=== PATIENT | male | born 1965 | race Caucasian/White ===

== ENCOUNTER → 2018-10-24 | Day surgery (SDC) | payer BC ==
[2018-10-22 13:45] VITALS: BMI 37.3
[~2018-10-24] MED LIST: LACTATED RINGERS 1,000 ML IV ONE; LACTATED RINGERS 1,000 ML IV SCH; LIDOCAINE 1% 20 ML VIAL (10MG/ML) FOR IV START INTRADERMA PRN; LIDOCAINE 1% INJ 10MG/ML (20 ML MDV) ONE; MIDAZOLAM 2 MG/2 ML VIAL IV PRN; MIDAZOLAM 2 MG/2 ML VIAL ONE; PROPOFOL 10 MG/ML 20 ML VIAL IV ONE; SODIUM CHLORIDE 0.9% 500 ML 500 ML IV ONE
[2018-10-24 07:45] LABS: Glucose,Whole Blood 141 mg/dL (75-99)
--- NOTE | 2018-10-24 07:49 | P.GSHP ---
History of Present Illness H&P Date: 10/24/18 Chief Complaint: Screening colonoscopy This a 53-year-old male presents today for screening colonoscopy. Patient denies a significant GI complaints. Past Medical History Past Medical History: Cancer, Diabetes Mellitus, GERD/Reflux Additional Past Medical History / Comment(s): BORDERLINE DIABETES IMPROVED SINCE LOST SOME WEIGHT. HISTORY OF KIDNEY STONES-PASSED ON OWN.Hodgkin's lymphomas-last chemo 2009 History of Any Multi-Drug Resistant Organisms: None Reported Additional Past Surgical History / Comment(s): LASIK ,laser procedure for kidney stone Past Anesthesia/Blood Transfusion Reactions: Motion Sickness, Postoperative Nausea & Vomiting (PONV) Smoking Status: Never smoker - Past Family History Mother Family Medical History: Cancer Additional Family Medical History / Comment(s): bone Father Family Medical History: Cancer Additional Family Medical History / Comment(s): prostate Medications and Allergies Home Medications Medication Instructions Recorded Confirmed Type Carvedilol [Coreg] 6.25 mg PO BID 10/22/18 10/24/18 History Allergies Allergy/AdvReac Type Severity Reaction Status Date / Time steroids AdvReac Nausea & Uncoded 10/22/18 13:52 Vomiting Surgical - Exam Vital Signs Pulse Resp BP Pulse Ox 96 12 161/94 97 10/24/18 07:23 10/24/18 07:23 10/24/18 07:23 10/24/18 07:23 - General well developed, no distress - Eyes PERRL - ENT normal pinna - Neck no masses - Respiratory normal expansion - Cardiovascular Rhythm: regular - Abdomen Abdomen: soft, non tender Results - Labs Abnormal Lab Results - Last 24 Hours (Table) 10/24/18 Range/Units 07:28 POC Glucose (mg/dL) 141 H (75-99) mg/dL Assessment and Plan Assessment: We'll perform screening colonoscopy.
--- NOTE | 2018-10-24 09:22 | P.OP ---
Date of Procedure: 10/24/18 Preoperative Diagnosis: Screening colonoscopy Postoperative Diagnosis: Cecal polyp Procedure(s) Performed: Colonoscopy Anesthesia: MAC Surgeon: Kristopher Little Pathology: other (Cecal polyp) Condition: stable Disposition: PACU Description of Procedure: The patient's placed on the endoscopy table in the lateral position. He received IV sedation. Digital rectal exam was performed which revealed no abnormalities. Flexible colonoscope was then placed patient entire colon. The ileocecal valve was visualized. In the cecum there was a polyp seen this removed with the snare. The scope was then withdrawn. Remainder the ascending colon, transverse colon, descending colon and sigmoid colon appeared normal. Scope was then brought back the rectum and this appeared normal. Scope was withdrawn for patient.
[2018-10-24 09:27] VITALS: RESP 16
[2018-10-24 09:50] LABS: Glucose,Whole Blood 133 mg/dL (75-99)
[2018-10-24 09:53] VITALS: BP 147/82; PULSE 79
== END | disposition home or self-care (01) ==
LOC: ORWHC2ENDO 06:47
PROVIDERS: ATTEND Surgery
DX: Z12.11 Encounter for screening for malignant neoplasm of colon (principal); D12.0 Benign neoplasm of cecum; E11.9 Type 2 diabetes mellitus without complications; K21.9 Gastro-esophageal reflux disease without esophagitis; Z79.899 Other long term (current) drug therapy; Z88.8 Allergy status to other drugs, medicaments and biological substances; Z87.442 Personal history of urinary calculi; Z85.71 Personal history of Hodgkin lymphoma
CPT/HCPCS: 88305; 45385; J2250; J2001; J2704

== ENCOUNTER 2019-06-04 01:30 | Emergency (ER) | payer BC ==
[2019-06-04 01:45] VITALS: RESP 16; TEMP 98.5
[2019-06-04] MEDS ORDERED: KETOROLAC 30 MG/ML 1 ML VIAL IVP STA (01:50)
[2019-06-04] MEDS ORDERED: SODIUM CHLORIDE 0.9% 1,000 ML IV STA (01:50)
[2019-06-04] MEDS ORDERED: ONDANSETRON 4 MG/2 ML VIAL IVP STA (02:37)
[2019-06-04] MEDS ORDERED: MORPHINE SULFATE 4 MG/ML SYRINGE IVP STA (02:37)
--- NOTE | 2019-06-04 02:38 | ED ---
Male Urogenital HPI - General Chief complaint: Urogenital Stated complaint: Poss kidney stones Time Seen by Provider: 06/04/19 01:49 Source: patient Mode of arrival: ambulatory - History of Present Illness Initial comments: Armando is a 54-year-old woman with a history of kidney stones, patient reports that he had a very large stone approximately 3 years ago that required lithotri psy, he reports that he thought he passed a stone approximately a couple months ago. Patient reports that he woke on Saturday morning at 4 AM with stabbing left-sided flank pain that radiated to his groin. Pain was identical to previous episodes of kidney stone. Pain was associated with nausea but no vomiting. Patient reports he's had no appetite throughout the day. He is taken home medications including Motrin, Tylenol and Vicodin with no relief of the pain. This morning the pain became unbearable so he came to the ER for evaluation. Patient denies any fevers, chills, chest pain shortness of breath or change in bowel habits. - Related Data Home Medications Medication Instructions Recorded Confirmed Carvedilol [Coreg] 6.25 mg PO BID 10/22/18 10/24/18 Previous Rx's Medication Instructions Recorded HYDROcodone/APAP 5-325MG [[place] 1 tab PO Q6HR PRN 3 Days #8 tab 06/04/19 5-325] Ibuprofen [Motrin] 800 mg PO TID #30 tab 06/04/19 Ondansetron [Zofran ODT] 4 mg PO Q8HR #12 tab 06/04/19 Tamsulosin [Flomax] 0.4 mg PO DAILY #7 cap 06/04/19 Allergies Allergy/AdvReac Type Severity Reaction Status Date / Time steroids AdvReac Nausea & Uncoded 10/22/18 13:52 Vomiting Review of Systems ROS Statement: Those systems with pertinent positive or pertinent negative responses have been documented in the HPI. ROS Other: All systems not noted in ROS Statement are negative. Past Medical History Past Medical History: Cancer, Diabetes Mellitus, GERD/Reflux Additional Past Medical History / Comment(s): BORDERLINE DIABETES IMPROVED SINCE LOST SOME WEIGHT. HISTORY OF KIDNEY STONES-PASSED ON OWN.Hodgkin's lymphomas- last chemo 2009 History of Any Multi-Drug Resistant Organisms: None Reported Additional Past Surgical History / Comment(s): LASIK ,laser procedure for kidney stone Past Anesthesia/Blood Transfusion Reactions: Motion Sickness, Postoperative Nausea & Vomiting (PONV) Past Psychological History: No Psychological Hx Reported Smoking Status: Never smoker - Past Family History Mother Family Medical History: Cancer Additional Family Medical History / Comment(s): bone Father Family Medical History: Cancer Additional Family Medical History / Comment(s): prostate General Exam - General Exam Comments Initial Comments: Physical Exam GENERAL: Appears uncomfortable HENT: Normocephalic, Atraumatic. EYES: PERRL, EOMI PULMONARY: Unlabored respirations. No audible rales rhonchi or wheezing was noted. CARDIOVASCULAR: There is a regular rate and rhythm without any murmurs gallops or rubs. ABDOMEN: Soft and nontender with normal bowel sounds. Tenderness to percussion of left flank SKIN: Skin is clear with no lesions or rashes and otherwise unremarkable. : Deferred NEUROLOGIC: Patient is alert and oriented x3. Moving all extremities spontaneously MUSCULOSKELETAL: Normal extremities with adequate strength and full range of motion. No lower extremity swelling or edema. No calf tenderness. PSYCHIATRIC: Normal psychiatric evaluation Course Vital Signs 06/04/19 06/04/19 01:42 05:09 Temperature 98.5 F Pulse Rate 104 H 63 Respiratory 16 16 Rate Blood Pressure 133/70 141/98 O2 Sat by Pulse 98 98 Oximetry Medical Decision Making - Medical Decision Making The patient was seen and evaluated, history is obtained from the patient Labs and imaging were ordered Was ordered pain Patient's pain was not adequately controlled Toradol morphine and Zofran were ordered Prior to the morphine being given the patient reported complete resolution of his pain and stated that he wouldn't need the morphine. Labs were unremarkable, CT confirms a left ureteral stone 6 mm, mid ureter with some hydronephrosis and perinephric stranding UA with no signs of UTI Patient comfortable plan for discharge home. Patient will be prescribed Motrin, [place], Zofran and Flomax. Patient be referred to urology for follow-up. All questions pertaining care were answered return parameters were discussed the patient was discharged home in stable condition. - Lab Data Result diagrams: 06/04/19 01:54 06/04/19 01:54 Lab Results 06/04/19 06/04/19 06/04/19 Range/Units 01:54 01:54 02:13 WBC 12.0 H (3.8-10.6) k/uL RBC 5.09 (4.30-5.90) m/uL Hgb 14.6 (13.0-17.5) gm/dL Hct 44.9 (39.0-53.0) % MCV 88.3 (80.0-100.0) fL MCH 28.7 (25.0-35.0) pg MCHC 32.5 (31.0-37.0) g/dL RDW 15.2 (11.5-15.5) % Plt Count 276 (150-450) k/uL Neutrophils % 81 % Lymphocytes % 10 % Monocytes % 7 % Eosinophils % 1 % Basophils % 0 % Neutrophils # 9.7 H (1.3-7.7) k/uL Lymphocytes # 1.2 (1.0-4.8) k/uL Monocytes # 0.8 (0-1.0) k/uL Eosinophils # 0.1 (0-0.7) k/uL Basophils # 0.0 (0-0.2) k/uL Sodium 139 (137-145) mmol/L Potassium 4.2 (3.5-5.1) mmol/L Chloride 102 (98-107) mmol/L Carbon Dioxide 25 (22-30) mmol/L Anion Gap 12 mmol/L BUN 15 (9-20) mg/dL Creatinine 1.21 (0.66-1.25) mg/dL Est GFR (CKD-EPI)AfAm 78 (>60 ml/min/1.73 sqM) Est GFR (CKD-EPI)NonAf 68 (>60 ml/min/1.73 sqM) Glucose 191 H (74-99) mg/dL Calcium 9.4 (8.4-10.2) mg/dL Urine Color Light Red Urine Appearance Cloudy (Clear) Urine pH 5.5 (5.0-8.0) Ur Specific [place] 1.027 (1.001-1.035) Urine Protein 1+ H (Negative) Urine Glucose (UA) 3+ H (Negative) Urine Ketones Negative (Negative) Urine Blood Large H (Negative) Urine Nitrite Negative (Negative) Urine Bilirubin Negative (Negative) Urine Urobilinogen <2.0 (<2.0) mg/dL Ur Leukocyte Esterase Negative (Negative) Urine RBC >182 H (0-5) /hpf Urine WBC 8 H (0-5) /hpf Ur Squamous Epith Cells 1 (0-4) /hpf Urine Bacteria Moderate H (None) /hpf Urine Mucus Rare H (None) /hpf Disposition Clinical Impression: Ureteral stone with hydronephrosis Disposition: HOME SELF-CARE Condition: Stable Instructions (If sedation given, give patient instructions): Kidney Stones (ED) Prescriptions: Tamsulosin [Flomax] 0.4 mg PO DAILY #7 cap Ibuprofen [Motrin] 800 mg PO TID #30 tab HYDROcodone/APAP 5-325MG [[place] 5-325] 1 tab PO Q6HR PRN 3 Days #8 tab PRN Reason: Pain Ondansetron [Zofran ODT] 4 mg PO Q8HR #12 tab Is patient prescribed a controlled substance at d/c from ED?: Yes If prescribed controlled substance>3 days was MAPS reviewed?: Prescribed <3 Days Referrals: Mindi Miranda DO [Primary Care Provider] - 1-2 days Jerzy Tenorio MD [STAFF PHYSICIAN] - 1-2 days
[2019-06-04 02:47] LABS: Appearance,Urine Cloudy (Clear); Bacteria,Urine Moderate /hpf; Bilirubin,Urine Negative (Negative); Blood,Urine Large (Negative); Color,Urine Light Red; Glucose,Urine (UA) 3+ (Negative); Ketones,Urine Negative (Negative); Leukocyte Esterase,Urine Negative (Negative); Mucus,Urine Rare /hpf; Nitrite,Urine Negative (Negative); PH, Urine 5.5 (5.0-8.0); Protein,Urine 1+ (Negative); RBC,Urine >182 /hpf (0-5); Specific Gravity,Urine 1.027 (1.001-1.035); Squamous Epithelial Cell,Urine 1 /hpf (0-4); Urobilinogen,Urine <2.0 mg/dL (<2.0); WBC,Urine 8 /hpf (0-5)
--- NOTE | 2019-06-04 03:24 | XR ---
EXAM: XR Abdomen, 1 View CLINICAL HISTORY: Pain TECHNIQUE: Frontal supine view of the abdomen/pelvis. COMPARISON: 11/14/2015 FINDINGS: Gastrointestinal tract: Gas and stool are present in the nondilated colon. Overall paucity of small bowel gas with a few nondilated gas- filled loops in the central abdomen. No pneumatosis or pneumoperitoneum. Bones/joints: No acute fracture or malalignment. IMPRESSION: Nonspecific bowel gas pattern. No pneumatosis or pneumoperitoneum.
--- NOTE | 2019-06-04 03:34 | CT ---
EXAM: CT Abdomen and Pelvis Without Intravenous Contrast, Renal Stone Protocol CLINICAL HISTORY: Pain TECHNIQUE: Axial computed tomography images of the abdomen and pelvis without intravenous contrast using renal stone protocol. CTDI is 0.242, 0.242, 16, as mGy and DLP is 1038 mGy-cm. This CT exam was performed using one or more of the following dose reduction techniques: automated exposure control, adjustment of the mA and/or kV according to patient size, and/or use of iterative reconstruction technique. COMPARISON: No relevant prior studies available. FINDINGS: Lower thorax: Unremarkable as visualized. ABDOMEN: Liver: The liver is diffusely hypodense suggestive of steatosis. Gallbladder and bile ducts: Unremarkable. No calcified gallstones. Pancreas: Unremarkable. Spleen: Unremarkable. No splenomegaly. Adrenals: Unremarkable. No mass. Right kidney and ureter: A 2 mm calculus is present in the mid pole calyx of the right kidney. No hydronephrosis. Left kidney and ureter: 6 mm distal left ureteral calculus. Mild left hydroureteronephrosis and perinephric stranding. Stomach and bowel: Unremarkable. PELVIS: Appendix: No findings to suggest acute appendicitis. Bladder: Unremarkable. No calcified stones. Reproductive: Unremarkable as visualized. ABDOMEN and PELVIS: Intraperitoneal space: Unremarkable. No free air. Bones/joints: Unremarkable. No acute osseous abnormality. Soft tissues: Small fat-containing periumbilical hernia. Vasculature: Unremarkable. No abdominal aortic aneurysm. Lymph nodes: Unremarkable. IMPRESSION: 6 mm distal left ureteral calculus. Mild left hydroureteronephrosis and perinephric stranding.
[2019-06-04 04:02] LABS: Basophils % (A) 0 %; Eosinophils # (A) 0.1 k/uL (0-0.7); Eosinophils % (A) 1 %; HCT 44.9 % (39.0-53.0); HGB 14.6 gm/dL (13.0-17.5); Lymphocytes # (A) 1.2 k/uL (1.0-4.8); Lymphocytes % (A) 10 %; MCH 28.7 pg (25.0-35.0); MCHC 32.5 g/dL (31.0-37.0); MCV 88.3 fL (80.0-100.0); Mean Platelet Volume 7.3; Monocytes # (A) 0.8 k/uL (0-1.0); Monocytes % (A) 7 %; Neutrophils # (A) 9.7 k/uL (1.3-7.7); Neutrophils % (A) 81 %; Platelet Count 276 k/uL (150-450); RBC 5.09 m/uL (4.30-5.90); RDW 15.2 % (11.5-15.5)
[2019-06-04 04:14] LABS: Calcium 9.4 mg/dL (8.4-10.2); Potassium 4.2 mmol/L (3.5-5.1)
[2019-06-04 05:10] VITALS: BP 141/98; PULSE 63
== END 2019-06-04 05:09 | disposition home or self-care (01) ==
LOC: EC 01:30
DX: N13.2 Hydronephrosis with renal and ureteral calculous obstruction (principal); Z88.8 Allergy status to other drugs, medicaments and biological substances; Z79.899 Other long term (current) drug therapy; Z85.71 Personal history of Hodgkin lymphoma; Z92.21 Personal history of antineoplastic chemotherapy; Z87.442 Personal history of urinary calculi; Z87.19 Personal history of other diseases of the digestive system; Z98.890 Other specified postprocedural states; Z80.42 Family history of malignant neoplasm of prostate; Z53.20 Procedure and treatment not carried out because of patient's decision for unspecified reasons
CPT/HCPCS: 36415; 80048; 85025; 81001; 74018; 74150; 99284; 96374; 96361; J1885

== ENCOUNTER → 2020-10-11 | Outpatient (CLI) | payer MEDICAID ==
--- NOTE | 2020-10-11 08:45 | US ---
EXAMINATION TYPE: US carotid duplex BILAT DATE OF EXAM: 10/11/2020 COMPARISON: NONE CLINICAL HISTORY: C81.98 HODGKINS,LYMPHOMA. Dizziness EXAM MEASUREMENTS: RIGHT: Peak Systolic Velocity (PSV) cm/sec ----- Right CCA: 79.0 ----- Right ICA: 87.5 ----- Right ECA: 131.5 ICA/CCA ratio: 1.1 RIGHT: End Diastole cm/sec ----- Right CCA: 25.0 ----- Right ICA: 23.7 ----- Right ECA: 12.4 LEFT: Peak Systolic Velocity (PSV) cm/sec ----- Left CCA: 82.5 ----- Left ICA: 67.7 ----- Left ECA: 72.9 ICA/CCA ratio: 0.8 LEFT: End Diastole cm/sec ----- Left CCA: 25.8 ----- Left ICA: 27.6 ----- Left ECA: 12.7 VERTEBRALS (direction of flow): Right Vertebral: Antegrade Left Vertebral: Antegrade No significant stenosis seen, slightly elevated velocities right ECA. Intimal thickening with minima l areas of atherosclerotic plaque are noted IMPRESSION: 1. No significant hemodynamic stenosis as visualized. Criteria for Assigning % of Stenosis / Diameter reduction (Estimation based on the indirect measurements of the internal carotid artery velocities (ICA PSV). 1. Normal (no stenosis)=ICA PSV < 125 cm/s: ratio < 2.0: ICA EDV<40 cm/s. 2. Less than 50% stenosis=ICA PSV < 125 cm/s: ratio < 2.0: ICA EDV<40 cm/s. 3. 50 to 69% stenosis=ICA PSV of 125 to 230 cm/s: ration 2.0 ? 4.0: ICA EDV 40-100 cm/s. 4. Greater than 70% stenosis to near occlusion= ICA PSV > 230 cm/s: ratio > 4.0: ICA EDV > 100 cm/s. 5. Near occlusion= ICA PSV velocities may be low or undetectable: variable ratio and ICA EDV. 6. Total occlusion=unable to detect flow.
== END | disposition home or self-care (01) ==
LOC: RADUSWWP 08:13
PROVIDERS: ATTEND Internal Medicine Hematology & Oncology
DX: C81.98 Hodgkin lymphoma, unspecified, lymph nodes of multiple sites (principal)
CPT/HCPCS: 93880

== ENCOUNTER 2024-02-07 11:04 | Inpatient (IN) | payer MEDICAID ==
--- NOTE | 2024-02-07 11:20 | ED ---
General Adult HPI - General Chief complaint: Chest Pain Stated complaint: Chest Pains Time Seen by Provider: 02/07/24 11:10 Source: patient, family, RN notes reviewed Mode of arrival: ambulatory Limitations: no limitations - History of Present Illness Initial comments: Patient is a pleasant 58-year-old male present to the emergency department with concerns with chest discomfort. Onset of symptoms was around an hour ago while walking to the car. Discomfort improved and then returned. Discomfort has remained somewhat severe since that time rated 8/10. Discomfort feels like an ache in the sternal region without radiation. Patient had mild nausea earlier. Patient was sweaty earlier. No dyspnea. No history of similar symptoms previously. - Related Data Home Medications Medication Instructions Recorded Confirmed carvediloL [Coreg] 6.25 mg PO BID 10/22/18 02/07/24 Empagliflozin [Jardiance] 25 mg PO DAILY 02/07/24 02/07/24 Fexofenadine HCl [Massiel Allergy] 180 mg PO DAILY 02/07/24 02/07/24 Meloxicam [Mobic] 15 mg PO DAILY 02/07/24 02/07/24 Potassium Gluconate 99 mg PO DAILY 02/07/24 02/07/24 Tamsulosin [Flomax] 0.4 mg PO HS 02/07/24 02/07/24 allopurinoL [Zyloprim] 100 mg PO DAILY 02/07/24 02/07/24 amLODIPine [Norvasc] 10 mg PO DAILY 02/07/24 02/07/24 metFORMIN HCL [Glucophage] 500 mg PO BID 02/07/24 02/07/24 tadalafiL [Cialis] 10 mg PO Q48H PRN 02/07/24 02/07/24 Allergies Allergy/AdvReac Type Severity Reaction Status Date / Time steroids AdvReac Nausea & Uncoded 02/07/24 12:06 Vomiting Review of Systems ROS Statement: Those systems with pertinent positive or pertinent negative responses have been documented in the HPI. ROS Other: All systems not noted in ROS Statement are negative. Constitutional: Denies: fever Eyes: Denies: eye pain ENT: Denies: ear pain Respiratory: Denies: dyspnea Cardiovascular: Reports: as per HPI, chest pain Musculoskeletal: Denies: back pain Past Medical History Past Medical History: Cancer, Diabetes Mellitus, GERD/Reflux Additional Past Medical History / Comment(s): BORDERLINE DIABETES IMPROVED SINCE LOST SOME WEIGHT. HISTORY OF KIDNEY STONES-PASSED ON OWN.Hodgkin's lymphomas- last chemo 2009 History of Any Multi-Drug Resistant Organisms: None Reported Additional Past Surgical History / Comment(s): LASIK ,laser procedure for kidney stone Past Anesthesia/Blood Transfusion Reactions: Motion Sickness, Postoperative Nausea & Vomiting (PONV) Past Psychological History: No Psychological Hx Reported Past Alcohol Use History: None Reported Past Drug Use History: None Reported - Past Family History Mother Family Medical History: Cancer Additional Family Medical History / Comment(s): bone Father Family Medical History: Cancer Additional Family Medical History / Comment(s): prostate General Exam Limitations: no limitations General appearance: alert, in no apparent distress Head exam: Present: normocephalic Eye exam: Present: normal appearance Neck exam: Present: normal inspection Respiratory exam: Present: normal lung sounds bilaterally. Absent: chest wall tenderness Cardiovascular Exam: Present: regular rate, normal rhythm Expanded Peripheral pulses: 2+: Radial (R), Radial (L), Dorsalis Pedis (R), Dorsalis Pedis (L) GI/Abdominal exam: Present: soft. Absent: tenderness Extremities exam: Present: normal inspection. Absent: pedal edema, calf t enderness Neurological exam: Present: alert Psychiatric exam: Present: normal affect, normal mood Skin exam: Present: normal color. Absent: diaphoretic Course Vital Signs 02/07/24 02/07/24 02/07/24 11:05 11:28 11:31 Temperature 97.5 F L Pulse Rate 75 77 78 Pulse Rate [ Car Shunter ] Respiratory 18 20 20 Rate Blood Pressure 134/79 132/79 99/65 O2 Sat by Pulse 98 98 96 Oximetry 02/07/24 02/07/24 02/07/24 11:47 11:51 12:28 Temperature Pulse Rate 66 65 Pulse Rate [ 68 Car Shunter ] Respiratory 16 16 Rate Blood Pressure 104/64 115/63 O2 Sat by Pulse 95 98 Oximetry EKG Findings - EKG Results: EKG: interpreted by ALEXSANDRA, sinus rhythm, normal axis, normal QRS, normal ST/T Medical Decision Making - Medical Decision Making Repeat EKG interpreted by myself shows sinus rhythm with a rate of 68. First- degree AV block with a DE of 208. QRS 97. QTc 406. Normal axis. Borderline anterior Q waves. Borderline ST roving changer I, II, and V6. Was pt. sent in by a medical professional or institution (, JUDE, SHOTGUN SHELL REPRINTING UNIT OPERATOR, urgent care, hospital, or [facility]...) When possible be specific @ -No Did you speak to anyone other than the patient for history (EMS, parent, family, police, friend...)? What history was obtained from this source @ - is present and helps provide history of patient's symptoms and timeline Did you review nursing and triage notes (agree or disagree)? Why? @ -I reviewed and agree with nursing and triage notes Were old charts reviewed (outside hosp., previous admission, EMS record, old EKG, old radiological studies, urgent care reports/EKG's, [facility] records)? Report findings @ -No old charts were reviewed Differential Diagnosis (chest pain, altered mental status, abdominal pain women, abdominal pain men, vaginal bleeding, weakness, fever, dyspnea, syncope, headache, dizziness, GI bleed, back pain, seizure, CVA, palpatations, mental health, musculoskeletal)? @ -Differential Chest Pain: Stable Angina, Unstable Angina, STEMI, NSTEMI Aortic Dissection, Pneumothorax, Musculoskeletal, Esophageal Spasm GERD, Cholecystitis, Pancreatitis, Zoster, this is not meant to be an all-inclusive list. EKG interpreted by me (3pts min.). @ -As above X-rays interpreted by me (1pt min.). @ -Chest x-ray shows no acute process CT interpreted by me (1pt min.). @ -None done U/S interpreted by me (1pt. min.). @ -None done What testing was considered but not performed or refused? (CT, X-rays, U/S, labs)? Why? @ -None What meds were considered but not given or refused? Why? @ -None Did you discuss the management of the patient with other professionals (professionals i.e. , JUDE, SHOTGUN SHELL REPRINTING UNIT OPERATOR, lab, RT, psych nurse, social staff worker, analog design engineer, teacher, antisubmarine weapons officer, gearcase assembler)? Give summary @ -Case was discussed with Dr. Kearns with cardiology who is coming to evaluate patient. [facility] physician also paged covering for hospital call Was smoking cessation discussed for >3mins.? @ -No Was critical care preformed (if so, how long)? @ -31 minutes critical care to Were there social determinants of health that impacted care today? How? (Homelessness, low income, unemployed, alcoholism, drug addiction, transportation, low edu. Level, literacy, decrease access to med. care, penitentiary, rehab)? @ -No Was there de-escalation of care discussed even if they declined (Discuss DNR or withdrawal of care, Hospice)? DNR status @ -No What co-morbidities impacted this encounter? (DM, HTN, Smoking, COPD, CAD, Cancer, CVA, ARF, Chemo, Hep., AIDS, mental health diagnosis, sleep apnea, morbid obesity)? @ -None Was patient admitted / discharged? Hospital course, mention meds given and route, prescriptions, significant lab abnormalities, going to OR and other pertinent info. @ -Patient has had recurrent chest pain that continues to improve with nitroglycerin. Patient does have borderline EKG changes without definitive STEMI. Patient will be heparinized and admitted with cardiac consult Undiagnosed new problem with uncertain prognosis? @ -No Drug Therapy requiring intensive monitoring for toxicity (Heparin, Nitro, Insulin, Cardizem)? @ -Patient started on heparin drip Were any procedures done? @ -No Diagnosis/symptom? @ -Unstable angina Acute, or Chronic, or Acute on Chronic? @ -Acute Uncomplicated (without systemic symptoms) or Complicated (systemic symptoms)? @ -Default Side effects of treatment? @ -No Exacerbation, Progression, or Severe Exacerbation? @ -No Poses a threat to life or bodily function? How? (Chest pain, [place], [place], pneumonia, PE, COPD, DKA, ARF, appy, cholecystitis, CVA, Diverticulitis, Homicidal, Suicida l, threat to staff... and all critical care pts) @ -No - Lab Data Result diagrams: 02/07/24 11:16 02/07/24 11:16 Lab Results 02/07/24 02/07/24 02/07/24 Range/Units 11:16 11:16 11:16 WBC 7.7 (3.8-10.6) k/uL RBC 5.34 (4.30-5.90) m/uL Hgb 15.3 (13.0-17.5) gm/dL Hct 48.8 (39.0-53.0) % MCV 91.4 (80.0-100.0) fL MCH 28.7 (25.0-35.0) pg MCHC 31.4 (31.0-37.0) g/dL RDW 13.7 (11.5-15.5) % Plt Count 275 (150-450) k/uL MPV 7.2 Neutrophils % 68 % Lymphocytes % 21 % Monocytes % 8 % Eosinophils % 1 % Basophils % 0 % Neutrophils # 5.2 (1.3-7.7) k/uL Lymphocytes # 1.6 (1.0-4.8) k/uL Monocytes # 0.6 (0-1.0) k/uL Eosinophils # 0.1 (0-0.7) k/uL Basophils # 0.0 (0-0.2) k/uL PT 10.9 (10.0-12.5) sec INR 1.0 (<1.2) APTT 24.0 (22.0-30.0) sec D-Dimer 0.44 (<0.60) mg/L FEU Sodium 138 (137-145) mmol/L Potassium 4.2 (3.5-5.1) mmol/L Chloride 105 (98-107) mmol/L Carbon Dioxide 25 (22-30) mmol/L Anion Gap 8 mmol/L BUN 15 (9-20) mg/dL Creatinine 0.78 (0.66-1.25) mg/dL Est GFR (CKD-EPI)AfAm >90 (>60 ml/min/1.73 sqM) Est GFR (CKD-EPI)NonAf >90 (>60 ml/min/1.73 sqM) Glucose 146 H (74-99) mg/dL Calcium 9.3 (8.4-10.2) mg/dL Magnesium 1.9 (1.6-2.3) mg/dL Total Bilirubin 0.8 (0.2-1.3) mg/dL AST 23 (17-59) U/L ALT 20 (4-49) U/L Alkaline Phosphatase 71 (38-126) U/L Troponin I (0.000-0.034) ng/mL Total Protein 7.4 (6.3-8.2) g/dL Albumin 4.3 (3.5-5.0) g/dL Amylase 57 (30-110) U/L Lipase 88 (23-300) U/L 03/29/24 Range/Units 11:16 WBC (3.8-10.6) k/uL RBC (4.30-5.90) m/uL Hgb (13.0-17.5) gm/dL Hct (39.0-53.0) % MCV (80.0-100.0) fL MCH (25.0-35.0) pg MCHC (31.0-37.0) g/dL RDW (11.5-15.5) % Plt Count (150-450) k/uL MPV Neutrophils % % Lymphocytes % % Monocytes % % Eosinophils % % Basophils % % Neutrophils # (1.3-7.7) k/uL Lymphocytes # (1.0-4.8) k/uL Monocytes # (0-1.0) k/uL Eosinophils # (0-0.7) k/uL Basophils # (0-0.2) k/uL PT (10.0-12.5) sec INR (<1.2) APTT (22.0-30.0) sec D-Dimer (<0.60) mg/L FEU Sodium (137-145) mmol/L Potassium (3.5-5.1) mmol/L Chloride (98-107) mmol/L Carbon Dioxide (22-30) mmol/L Anion Gap mmol/L BUN (9-20) mg/dL Creatinine (0.66-1.25) mg/dL Est GFR (CKD-EPI)AfAm (>60 ml/min/1.73 sqM) Est GFR (CKD-EPI)NonAf (>60 ml/min/1.73 sqM) Glucose (74-99) mg/dL Calcium (8.4-10.2) mg/dL Magnesium (1.6-2.3) mg/dL Total Bilirubin (0.2-1.3) mg/dL AST (17-59) U/L ALT (4-49) U/L Alkaline Phosphatase (38-126) U/L Troponin I <0.012 (0.000-0.034) ng/mL Total Protein (6.3-8.2) g/dL Albumin (3.5-5.0) g/dL Amylase (30-110) U/L Lipase (23-300) U/L Critical Care Time Critical Care Time: Yes Total Critical Care Time: 31 Disposition Clinical Impression: Unstable angina Disposition: ADMITTED IP TO THIS HOSP Condition: Serious Is patient prescribed a controlled substance at d/c from ED?: No Referrals: Mindi Miranda DO [Primary Care Provider] - 1-2 days Time of Disposition: 12:38
[2024-02-07] MEDS: ASPIRIN 81 MG PO STA (11:26)
[2024-02-07] MEDS: NITROGLYCERIN SL TABS 0.4 MG TAB SUBLINGUAL STA ×3 (11:27→12:30)
[2024-02-07 11:43] LABS: Basophils % (A) 0 %; Eosinophils # (A) 0.1 k/uL (0-0.7); Eosinophils % (A) 1 %; HCT 48.8 % (39.0-53.0); HGB 15.3 gm/dL (13.0-17.5); Lymphocytes # (A) 1.6 k/uL (1.0-4.8); Lymphocytes % (A) 21 %; MCH 28.7 pg (25.0-35.0); MCHC 31.4 g/dL (31.0-37.0); MCV 91.4 fL (80.0-100.0); Mean Platelet Volume 7.2; Monocytes # (A) 0.6 k/uL (0-1.0); Monocytes % (A) 8 %; Neutrophils # (A) 5.2 k/uL (1.3-7.7); Neutrophils % (A) 68 %; Platelet Count 275 k/uL (150-450); RBC 5.34 m/uL (4.30-5.90); RDW 13.7 % (11.5-15.5); WBC 7.7 k/uL (3.8-10.6)
[2024-02-07 12:00] LABS: ALT 20 U/L (4-49); AST 23 U/L (17-59); African American GFR (CKD) >90 (>60 ml/min/1.73 sqM); Albumin 4.3 g/dL (3.5-5.0); Alkaline Phosphatase 71 U/L (38-126); Amylase 57 U/L (30-110); Anion Gap 8 mmol/L; Blood Urea Nitrogen 15 mg/dL (9-20); Calcium 9.3 mg/dL (8.4-10.2); Carbon Dioxide 25 mmol/L (22-30); Chloride 105 mmol/L (98-107); Glucose 146 mg/dL (74-99); Lipase 88 U/L (23-300); Magnesium 1.9 mg/dL (1.6-2.3); Non-African American GFR(CKD) >90 (>60 ml/min/1.73 sqM); Potassium 4.2 mmol/L (3.5-5.1); Prothrombin Time 10.9 sec (10.0-12.5); Sodium 138 mmol/L (137-145); Total Bilirubin 0.8 mg/dL (0.2-1.3); Total Protein 7.4 g/dL (6.3-8.2)
--- NOTE | 2024-02-07 12:27 | XR ---
EXAMINATION TYPE: XR chest 1V portable DATE OF EXAM: 02/07/2024 COMPARISON: NONE HISTORY: Chest pressure TECHNIQUE: Single frontal view of the chest is obtained. FINDINGS: There is no focal air space opacity, pleural effusion, or pneumothorax seen. The cardiac silhouette size is within normal limits. The osseous structures are intact. Heart is enlarged. Diff use osteopenia. IMPRESSION: No acute process.
[2024-02-07] MEDS ORDERED: HEPARIN SODIUM 1,000 UN/ML (10ML VL) IV PRN (12:33)
[2024-02-07] MEDS ORDERED: NITROGLYCERIN SL TABS 0.4 MG TAB SUBLINGUAL PRN ×2 (12:38→12:46)
[2024-02-07] MEDS ORDERED: ALPRAZolam 0.5 MG TAB PO PRN (12:46)
[2024-02-07] MEDS ORDERED: ALPRAZolam 0.25 MG TAB PO PRN (12:46)
[2024-02-07] MEDS: HEPARIN SOD,PORK IN 0.45% NACL 25,000 UNIT in 0.45% NACL 1 250ML.BAG IV SCH (12:56)
[2024-02-07] MEDS: HEPARIN SODIUM 1,000 UN/ML (10ML VL) IV ONE (12:58)
[2024-02-07] MEDS: SODIUM CHLORIDE 0.9% 1,000 ML IV STA (13:00)
[2024-02-07] MEDS: ASPIRIN 325 MG TAB PO STA (13:00)
[2024-02-07] MEDS: ATORVASTATIN 80 MG TAB PO STA ×2 (13:00→13:06)
[2024-02-07] MEDS ORDERED: VERAPAMIL 2.5 MG/ML 2 ML AMP ONE (13:53)
[2024-02-07] MEDS ORDERED: HEPARIN SODIUM 1,000 UN/ML (10ML VL) ONE (13:53)
[2024-02-07] MEDS ORDERED: LIDOCAINE 1% INJ 10MG/ML (20 ML MDV) ONE (13:53)
[2024-02-07] MEDS ORDERED: METOPROLOL TARTRATE 5 MG/5 ML VIAL IVP ONE (14:00)
[2024-02-07] MEDS: MIDAZOLAM 2 MG/2 ML VIAL IVP ONE (14:01)
[2024-02-07] MEDS: LIDOCAINE 1% INJ 10MG/ML (20 ML MDV) SQ ONE (14:01)
[2024-02-07] MEDS: METOPROLOL TARTRATE 5 MG/5 ML VIAL IVP ONE (14:01)
[2024-02-07] MEDS: VERAPAMIL SYRINGE (5 MG/10 ML) INTRAARTER ONE (14:04)
[2024-02-07] MEDS: HEPARIN SODIUM 1,000 UN/ML (10ML VL) IVP ONE (14:04)
[2024-02-07] MEDS: SODIUM CHLORIDE 0.9% 1,000 ML IV ONE (14:05)
[2024-02-07] MEDS: NITROGLYCERIN 1000MCG/10ML SYRINGE INTRACORON ONE ×2 (14:11→14:21)
[2024-02-07] MEDS ORDERED: CLOPIDOGREL 75 MG TAB ONE (14:12)
[2024-02-07] MEDS: CLOPIDOGREL 75 MG TAB PO ONE (14:13)
--- NOTE | 2024-02-07 14:16 | CT ---
EXAMINATION TYPE: CT angio chest CT DLP: 1217.9 mGycm, Automated exposure control for dose reduction was used. DATE OF EXAM: 02/07/2024 1:45 PM COMPARISON: Chest radiograph from same day. Chest abdomen and pelvis CT 04/24/2010. CLINICAL INDICATION:Male, 58 years old with history of aortic dissection; aneurysm TECHNIQUE/CONTRAST: CTA scan of the thorax is performed with IV Contrast, patient injected with 100 mL of Isovue 370, MIP images are created and reviewed . These are created on a separate workstation.. FINDINGS: Pulmonary Artery: There is no evidence for a filling defect within the pulmonary vasculature to sugge st acute pulmonary embolism. The pulmonary artery is of normal size. Lungs/Pleura: No evidence of focal consolidation, pleural effusion or pneumothorax. Airway: Large airways are patent. Heart: Heart is within normal limits for size. Vasculature: No evidence of aortic aneurysm. Mediastinum: No gross evidence of adenopathy. Musculoskeletal: No acute osseous abnormalities Soft Tissues: Unremarkable. Lower neck: No significant findings. Upper Abdomen: No significant findings. IMPRESSION: 1. Normal caliber thoracic aorta. No acute process is detected
[2024-02-07] MEDS ORDERED: niCARdipine 25 MG/10 ML VIAL ONE (14:21)
[2024-02-07] MEDS: niCARdipine Syringe (1,000 mcg/10 mL) INTRACORON ONE (14:22)
[2024-02-07] MEDS: IOPAMIDOL-370 100ML BTL INJ ONE ×2 (14:26→14:48)
[2024-02-07] MEDS ORDERED: ZOLPIDEM 5 MG TAB PO PRN (14:57)
[2024-02-07] MEDS ORDERED: ATROPINE SULFATE 0.1 MG/ML 10ML SYRINGE IV PRN (14:57)
[2024-02-07] MEDS ORDERED: MAG HYDROX/AL HYDROX/SIMETH 30 ML CUP PO PRN (14:57)
[2024-02-07] MEDS ORDERED: RX INFO: IV CONTRAST WAS GIVEN 1 EACH MISC MISCELLANE PRN (14:57)
[2024-02-07 15:18] LABS: Glucose,Whole Blood 138 mg/dL (70-110)
[2024-02-07] MEDS: NITROGLYCERIN OINT 1 INCH/GM PACKET TOPICAL SCH (16:36)
--- NOTE | 2024-02-07 17:41 | P.HPIM ---
History of Present Illness H&P Date: 02/07/24 Chief Complaint: Chest pain 58-year-old male present to the emergency department with concerns with chest discomfort. Onset of symptoms was around an hour ago while walking to the car. Discomfort improved and then returned. Discomfort has remained somewhat severe since that time rated 8/10. Discomfort feels like an ache in the sternal region without radiation. Patient had mild nausea earlier. Patient was sweaty earlier. No dyspnea. No history of similar symptoms previously. Blood work completed in ED reveals a CBC WBC of 7.7, hemoglobin of 15.3 and platelet count of 275, sodium 138, potassium 2.2, BUNs/creatinine 15/0.78 and blood glucose of 146, D-dimer of 0.44, troponin is less than 0.[address]-T wave changes Patient is placed on IV heparin infusion in ED and is admitted for further cardiac evaluation Review of Systems CONSTITUTIONAL: No fever, no malaise, no fatigue. HEENT: No recent visual problems or hearing problems. Denied any sore throat. CARDIOVASCULAR: No chest pain, orthopnea, PND, no palpitations, no syncope. PULMONARY: No shortness of breath, no cough, no hemoptysis. GASTROINTESTINAL: No diarrhea, no nausea, no vomiting, no abdominal pain. NEUROLOGICAL: No headaches, no weakness, no numbness. HEMATOLOGICAL: Denies any bleeding or petechiae. GENITOURINARY: Denies any burning micturition, frequency, or urgency. MUSCULOSKELETAL/RHEUMATOLOGICAL: Denies any joint pain, swelling, or any muscle pain. ENDOCRINE: Denies any polyuria or polydipsia. The rest of the 14-point review of systems is negative. Past Medical History Past Medical History: Cancer, Diabetes Mellitus, GERD/Reflux Additional Past Medical History / Comment(s): BORDERLINE DIABETES IMPROVED SINCE LOST SOME WEIGHT. HISTORY OF KIDNEY STONES-PASSED ON OWN.Hodgkin's lymphomas- last chemo 2009 History of Any Multi-Drug Resistant Organisms: None Reported Additional Past Surgical History / Comment(s): LASIK ,laser procedure for kidney stone Past Anesthesia/Blood Transfusion Reactions: Motion Sickness, Postoperative Nausea & Vomiting (PONV) Past Psychological History: No Psychological Hx Reported Past Alcohol Use History: None Reported Past Drug Use History: None Reported - Past Family History Mother Family Medical History: Cancer Additional Family Medical History / Comment(s): bone Father Family Medical History: Cancer Additional Family Medical History / Comment(s): prostate Medications and Allergies Home Medications Medication Instructions Recorded Confirmed Type carvediloL [Coreg] 6.25 mg PO BID 10/22/18 02/07/24 History Empagliflozin [Jardiance] 25 mg PO DAILY 02/07/24 02/07/24 History Fexofenadine HCl [Massiel Allergy] 180 mg PO DAILY 02/07/24 02/07/24 History Meloxicam [Mobic] 15 mg PO DAILY 02/07/24 02/07/24 History Potassium Gluconate 99 mg PO DAILY 02/07/24 02/07/24 History Tamsulosin [Flomax] 0.4 mg PO HS 02/07/24 02/07/24 History allopurinoL [Zyloprim] 100 mg PO DAILY 02/07/24 02/07/24 History amLODIPine [Norvasc] 10 mg PO DAILY 02/07/24 02/07/24 History metFORMIN HCL [Glucophage] 500 mg PO BID 02/07/24 02/07/24 History tadalafiL [Cialis] 10 mg PO Q48H PRN 02/07/24 02/07/24 History Allergies Allergy/AdvReac Type Severity Reaction Status Date / Time steroids AdvReac Nausea & Uncoded 02/07/24 12:06 Vomiting Physical Exam Vitals: Vital Signs Temp Pulse Pulse Resp BP Pulse Ox 02/07/24 13:37 74 16 131/74 98 02/07/24 13:04 65 16 114/65 98 02/07/24 12:28 65 16 115/63 98 02/07/24 11:51 66 16 104/64 95 02/07/24 11:47 68 02/07/24 11:31 78 20 99/65 96 02/07/24 11:28 77 20 132/79 98 02/07/24 11:05 97.5 F L 75 18 134/79 98 Intake and Output 02/06/24 02/07/24 02/07/24 22:59 06:59 14:59 Other: Weight 108.862 kg General appearance: alert, in no apparent distress Head exam: Present: normocephalic Eye exam: Present: normal appearance Neck exam: Present: normal inspection Respiratory exam: Present: normal lung sounds bilaterally. Absent: chest wall t enderness Cardiovascular Exam: Present: regular rate, normal rhythm Expanded Peripheral pulses: 2+: Radial (R), Radial (L), Dorsalis Pedis (R), Dorsalis Pedis (L) GI/Abdominal exam: Present: soft. Absent: tenderness Extremities exam: Present: normal inspection. Absent: pedal edema, calf tende rness Neurological exam: Present: alert Psychiatric exam: Present: normal affect, normal mood Skin exam: Present: normal color. Absent: diaphoretic Results CBC & Chem 7: 02/07/24 11:16 02/07/24 11:16 Labs: Abnormal Lab Results - Last 24 Hours (Table) 02/07/24 Range/Units 11:16 Glucose 146 H (74-99) mg/dL Assessment and Plan Assessment: 1. Chest pain; unstable angina --Patient is admitted to telemetry; monitor EKG and trend troponin -- Currently on IV heparin infusion per protocol -Cardiology is consulted for further evaluation 2. Hypertension; amlodipine 10 mg daily; Coreg 6.25 mg twice daily 3. Diabetes mellitus type 2; patient takes metformin 500 mg twice daily along with Jardiance 25 mg daily; metformin is placed on hold -- Will monitor Accu-Cheks before every meal and at bedtime with insulin sliding scale 4. Hyperuricemia/gout; allopurinol 100 mg daily 5. Seasonal allergies; fexofenadine 180 mg daily 6. BPH/urinary retention; Flomax 0.4 mg daily DVT prophylaxis; SCDs/IV heparin CODE STATUS; full code
[2024-02-07] MEDS: TAMSULOSIN 0.4 MG CAP.ER.24H PO SCH (22:06)
[2024-02-07] MEDS: carvediloL 6.25 MG TAB PO SCH (22:06)
[2024-02-07] MEDS: ATORVASTATIN 80 MG TAB PO SCH (22:06)
--- NOTE | 2024-02-08 00:35 | CONS ---
CONSULTATION HISTORY OF PRESENT ILLNESS: This is a 58-year-old gentleman, who is very active physically. He has history of hypertension, type 2 diabetes, benign prostatic hypertrophy, and also has had in the past history of non-Hodgkin's lymphoma, for which he had chemotherapy. He is otherwise very active. He comes in because of 2 episodes of midsternal chest pressure with diaphoresis that occurred while he was getting ready to leave home and then again in the parking lot of [employer]. On arrival, EKG reveals prominent T-waves precordially. Troponin is negative. Clinical picture suggests that of angina. However, he also has midsternal chest discomfort, sometimes radiating to the back and both these episodes had a similar picture. All of these were fairly brief 5 to 7 minutes. He has longstanding hypertension, although pressure is good at this time. I recommended a CT angio of the chest to rule out dissection and will then take him to the cardiac orthodontic laboratory technician. Explained this to the patient and in detail. They understood all details and wished to proceed with the procedure. He had diaphoresis, chest discomfort with some radiation to the back. He is comfortable at the time of my evaluation. Initial troponin is negative. MEDICATIONS AT HOME: 1. Coreg 6.25 mg b.i.d. 2. Jardiance 25 mg daily. 3. Massiel. 4. Flomax 0.4 mg daily. 5. Amlodipine 10 mg daily. 6. Metformin 500 mg b.i.d. 7. Cialis p.r.n. PHYSICAL EXAMINATION: VITAL SIGNS: Blood pressure is 110/70, pulse rate is 64 per minute. HEENT: Unremarkable. Fundus not examined by me. NECK: Supple. No JVD. HEART: S1 and S2. Distant heart sounds, not well heard. LUNGS: Clear. ABDOMEN: Soft and nontender. EXTREMITIES: Lower extremities revealed diminished pulses. CENTRAL NERVOUS SYSTEM: Grossly no focal deficits. EKG revealed prominent T-waves precordially, poor R-waves, cannot exclude anterior wall ischemia. LABORATORY DATA: Initial troponin is normal. Renal function is normal. IMPRESSION: 1. Unstable angina. 2. Rule out aortic dissection with midsternal chest pain radiating to the back. 3. Type 2 diabetes. 4. Hypertension. RECOMMENDATIONS: I am recommending IV heparin. CT angio of the chest, echocardiogram, and cardiac catheterization. We will perform this expeditiously. Explained the rationale, risks, benefits, and options to the patient and his . They understand and wish to proceed with the procedure. MMODL / IJN: [id number] /
--- NOTE | 2024-02-08 01:20 | CC ---
CARDIAC CATHETERIZATION REPORT PROCEDURES PERFORMED: 1. Left heart catheterization and coronary angiography. 2. Percutaneous transluminal coronary angioplasty and stenting of mid left anterior descending with a drug-eluting stent. 3. Intravascular ultrasound of mid left anterior descending. 4. Aspiration thrombectomy of mid left anterior descending. ANESTHESIA: Moderate conscious sedation time was 44 minutes. The patient was administered Versed. Oxygen saturation, hemodynamics, and EKG were monitored closely. CLINICAL INFORMATION: Mr. Armando Rivas is a 58-year-old gentleman with type 2 diabetes, hypertension, who came into the hospital with chest pain and radiating to the back and he also has hypertension, but pressure was about 160. In view of his unusual symptoms, I recommended a CT angio of the chest, which was normal, and echo which revealed anteroseptal wall motion abnormality. His EKG revealed prominent J-point and T waves, but no ST elevation initially. Subsequently, as he was being moved to the ship laborer, he had anterior ST elevation. He was advised prompt cardiac catheterization. Risks, benefits, options and rationale were explained. The patient understood all details as did the and wished to proceed with the procedure. PROCEDURE NOTE: Under local anesthesia and strict aseptic precautions, a 6-Mozambican introducer was placed in the right radial artery. I started off with a 3.5 left Liliana guide catheter to cannulate the left coronary artery and noted that there was a mid LAD lesion and performed PCI of this vessel followed by intravascular ultrasound and also aspiration thrombectomy prior to that. I then performed selective injection of the right coronary artery and checked LV pressures. The sheath was then taken out and TR band applied as per protocol with saturation in the fingers of the right hand of 92%. The patient tolerated the procedure well without complication. Results were discussed with the patient as well as his and 2 other family members. The patient will be on aspirin and Plavix without interruption for 1 year. He was sent to the ICU in a stable condition. Reperfusion was accomplished within [address] elevation on the EKG. Initial EKG was not suggestive of ST-elevation NV. He had a prominent T- waves. Reperfusion was established within 30 minutes of noticing the abnormality on the EKG of ST elevation. CARDIAC CATHETERIZATION FINDINGS: The left ventricular end-diastolic pressure was 13 mmHg and there was no gradient across the aortic valve. CORONARY ANGIOGRAPHY FINDINGS: Right coronary artery: Dominant vessel. Minor irregularities. No significant disease. Distally bifurcates in large PDA and PLV, which are free of significant disease. Left main coronary artery: Short patent vessel. No significant disease. Bifurcates into LAD and circumflex. Left anterior descending coronary artery: Good caliber vessel, has diffuse disease, gives off a good-sized septal and diagonal branch and then there is an eccentric 95% to 99% stenosis with haziness and thrombus and then there is a 2nd diagonal that comes off from the lesion and beyond it, the caliber of the vessel is relatively small. It runs all the way to the apex supplying a sizable amount of myocardium, but the vessel is diffusely diseased with 30% to 40% narrowing throughout. The mid lesion of 99% is a culprit lesion. There is haziness suggestive of thrombus and the flow is very sluggish. Left posterior circumflex coronary artery: Nondominant vessel. Good caliber and good distribution, divides into 3 branches, has minor irregularities, no significant disease. Left ventriculogram was not performed. FINAL IMPRESSION: This patient has a 99% mid LAD lesion, culprit vessel with a lot of thrombus burden. Circumflex which is nondominant and the dominant RCA are free of significant disease. Normal filling pressures. No gradient across aortic valve. RECOMMENDATIONS: I performed PCI of LAD expeditiously. PCI PROCEDURE DETAILS: A JL 3.5 guide catheter was used. A run-through wire was used to cross the lesion. Predilatation was performed with a 2.5 caliber 15 mm long NC Trek balloon. I then deployed an 18 mm long 3.25 caliber Xience stent. Subsequently, I performed aspiration thrombectomy because there was a thrombus in the distal end of the stent. A significant amount of thrombus was recovered. I then performed intravascular ultrasound, which revealed good apposition and full expansion of the stent. Excellent angiographic as well as ultrasound joshi, the results were excellent. The sheath was then taken out and TR band applied as per protocol and the patient was sent to the room in a stable condition. Excellent angiographic result without complication was achieved. MMODL / IJN: [id number] /
[2024-02-08 05:55] LABS: Basophils % (A) 0 %; Eosinophils % (A) 0 %; HCT 43.2 % (39.0-53.0); HGB 14.4 gm/dL (13.0-17.5); Lymphocytes # (A) 1.5 k/uL (1.0-4.8); Lymphocytes % (A) 18 %; MCH 30.3 pg (25.0-35.0); MCHC 33.3 g/dL (31.0-37.0); Mean Platelet Volume 7.2; Monocytes # (A) 0.6 k/uL (0-1.0); Monocytes % (A) 7 %; Neutrophils # (A) 5.9 k/uL (1.3-7.7); Neutrophils % (A) 73 %; Platelet Count 239 k/uL (150-450); RBC 4.74 m/uL (4.30-5.90); RDW 13.9 % (11.5-15.5); WBC 8.2 k/uL (3.8-10.6)
[2024-02-08] MEDS ORDERED: SODIUM CHLORIDE 0.9% 1,000 ML in EMPTY BAG 1 BAG IV SCH (06:00)
[2024-02-08 06:10] LABS: INR 1.1 (<1.2)
[2024-02-08 06:44] LABS: Glucose,Whole Blood 117 mg/dL (70-110)
[2024-02-08] MEDS ORDERED: HEPARIN SODIUM,PORCINE 10,000 UNIT in SODIUM CHLORIDE 0.9% 1,000 ML IRRIGATION PRN (07:00)
[2024-02-08] MEDS ORDERED: HEPARIN SODIUM,PORCINE (1 ML) 2,500 UNIT in SODIUM CHLORIDE 0.9% 250 ML IRRIGATION PRN (07:00)
[2024-02-08] MEDS: LOSARTAN 50 MG TAB PO SCH (08:14)
[2024-02-08] MEDS: CLOPIDOGREL 75 MG TAB PO SCH (08:14)
[2024-02-08] MEDS: LORATADINE 10 MG TAB PO SCH (08:14)
[2024-02-08] MEDS: allopurinoL 100 MG TAB PO SCH (08:14)
[2024-02-08] MEDS: DAPAGLIFLOZIN PROPANEDIOL 10 MG TABLET PO SCH (08:14)
[2024-02-08] MEDS: amLODIPine 10 MG TAB PO SCH (08:14)
[2024-02-08] MEDS: ASPIRIN 81 MG PO SCH (08:14)
[2024-02-08] MEDS ORDERED: NON FORMULARY DRUG (Potassium Gluconate [Potassium Gluconate] 99 MG Tablet) PO SCH (09:00)
[2024-02-08] MEDS ORDERED: ASPIRIN 325 MG TAB PO SCH (09:00)
[2024-02-08 09:48] LABS: Chol/HDL Ratio 4.54 Ratio; LDL Cholesterol,Calculated 55.8 mg/dL (0.0-131.0)
[2024-02-08 11:38] LABS: Glucose,Whole Blood 133 mg/dL (70-110)
[2024-02-08 12:36] VITALS: BMI 31.8
[2024-02-08 17:07] VITALS: BP 109/68; PULSE 100; RESP 16; TEMP 97.6
--- NOTE | 2024-02-08 19:41 | P.PN ---
Subjective Progress Note Date: 02/08/24 SUBJECTIVE: Patient was seen and examined at bedside this a.m. underwent cardiac catheterization yesterday with Dr. Kearns and received a stent to his mid LAD. Patient had significant thrombus burden and required thrombectomy. The procedure was done through radial approach. This morning right radial art anitra appears intact. There is a small hematoma which is resolving. PHYSICAL EXAMINATION Hemodynamically stable, blood pressure systolic 110 to 120 mmHg Heart rate 70s to 80s beats per minute, sinus rhythm, no reported atrial fibrillation or any other arrhythmias S1-S2 audible, regular pulses, no systolic murmur audible is No signs of congestion, no JVD, no swelling in bilateral lower extremity Right radial pulse intact, small hematoma ASSESSMENT Anterior STEMI S/p mid LAD PCI with thrombectomy Type 2 diabetes Hypertension Obesity Dyslipidemia PLAN Continue aspirin, atorvastatin, Plavix, losartan 50 mg daily, amlodipine 5 mg daily, Jardiance 25 mg, Coreg 6.25 mg twice daily, Outpatient follow-up with Dr. Kearns in next 1 to 2 weeks Jay Tolentino MD, [facility], [facility] Thank you for allowing [facility] to participate in this patient's care. Please contact us in case of any followup questions. Objective - Vital Signs Vital signs: Vital Signs Temp 97.6 F 02/08/24 16:00 Pulse 100 02/08/24 16:00 Resp 16 02/08/24 16:00 BP 109/68 02/08/24 16:00 Pulse Ox 93 L 02/08/24 16:00 FiO2 Intake & Output 02/08/24 02/08/24 02/09/24 06:59 18:59 06:59 Intake Total 450 200 Balance 450 200 Weight 100.6 kg 100.6 kg Intake: Intake, IV Titration 300 Amount Sodium Chloride 0.9% 1, 300 000 ml In Empty Bag 1 bag @ 75 mls/hr IV .[id number] HARINDER Rx#:[id number] Oral 150 200 Other: # Voids 1 0 # Bowel Movements 0 0 - Labs CBC & Chem 7: 02/08/24 05:17 02/07/24 11:16 Labs: Abnormal Lab Results - Last 24 Hours (Table) 02/08/24 02/08/24 02/08/24 Range/Units 05:17 06:42 11:36 POC Glucose (mg/dL) 117 H 133 H (70-110) mg/dL Triglycerides 216.00 H (0.00-149.00) mg/dL VLDL Cholesterol, Calc 43.20 H (5.00-40.00) mg/dL HDL Cholesterol 28.00 L (40.00-60.00) mg/dL
--- NOTE | 2024-02-08 20:20 | CA ---
Transthoracic Echo Report Name: Armando Rivas Age: 58 Gender: M : 1965 Exam Date: 02/07/2024 13:02 Exam Location: [facility] Ht (in): 70 Wt (lb): 240 Ordering Physician: Ava Muse Attending/Referring Phys: [id number], [facility] Leesa Valenzuela RDCS Procedure CPT: Indications: LVF Cardiac Hx: Technical Quality: Technically difficult study Contrast 1: Definity Total Dose (mL): 2 Contrast 2: Total Dose (mL): MEASUREMENTS (Male / Female) Normal Values 2D ECHO LV Diastolic Diameter PLAX 5.4 cm 4.2 - 5.9 / 3.9 - 5.3 cm LV Systolic Diameter PLAX 4.0 cm IVS Diastolic Thickness 1.3 cm 0.6 - 1.0 / 0.6 - 0.9 cm LVPW Diastolic Thickness 1.4 cm 0.6 - 1.0 / 0.6 - 0.9 cm LV Relative Wall Thickness 0.5 RV Internal Dim ED PLAX 3.5 cm LA Systolic Diameter LX 4.1 cm 3.0 - 4.0 / 2.7 - 3.8 cm LV Diastolic Volume MOD BP 91.3 cm??? 67 - 155 / 56 - 104 cm??? LV Systolic Volume MOD BP 50.4 cm??? - 58 / 19 - 49 cm??? LV Ejection Fraction MOD BP 44.8 % >= 55 % LV Cardiac Index MOD BP 1112.2 cm???/min???m??? LV Diastolic Volume MOD 4C 107.6 cm??? LV Systolic Volume MOD 4C 66.6 cm??? LV Ejection Fraction MOD 4C 38.1 % LV Cardiac Index MOD 4C 1113.7 cm???/min???m??? LV Diastolic Length 4C 8.9 cm LV Systolic Length 4C 8.4 cm LV Diastolic Volume MOD 2C 76.3 cm??? LV Systolic Volume MOD 2C 37.3 cm??? LV Ejection Fraction MOD 2C 51.1 % LV Cardiac Index MOD 2C 1057.6 cm???/min???m??? LV Diastolic Length 2C 8.7 cm LV Systolic Length 2C 7.7 cm LA Volume 61.3 cm??? 18 - 58 / 22 - 52 cm??? LA Volume Index 26.0 cm???/m??? 16 - 28 cm???/m??? M-MODE Aortic Root Diameter MM 3.6 cm MV E Point Septal Separation 0.5 cm AV Cusp Separation MM 2.4 cm DOPPLER AV Peak Velocity 101.6 cm/s AV Peak Gradient 4.1 mmHg MV Area PHT 4.0 cm??? Mitral E Point Velocity 99.0 cm/s Mitral A Point Velocity 80.8 cm/s Mitral E to A Ratio 1.2 MV Deceleration Time 188.4 ms TR Peak Velocity 176.5 cm/s TR Peak Gradient 12.5 mmHg Right Ventricular Systolic Press 18.5 mmHg FINDINGS Left Ventricle Left ventricular ejection fraction is estimated at 40-45 %. Left ventricular cavity size normal. Mildly increased septal wall thickness. Moderately decreased left ventricular ejection fraction. Apical, anterio-apical, apical- septal wall hypokinesia Right Ventricle Mild right ventricular dilatation. Right ventricular systolic pressure within normal limits. Right Atrium Right atrium not well visualized. Left Atrium Mildly increased left atrial diameter. Mildly increased left atrial volume. Mitral Valve Structurally normal mitral valve. Trace mitral regurgitation. Aortic Valve Trileaflet aortic valve. No aortic valve stenosis or regurgitation. Tricuspid Valve Structurally normal tricuspid valve. Trace to mild tricuspid regurgitation. Pulmonic Valve Structurally normal pulmonic valve. Trace pulmonic regurgitation. Pericardium No pericardial effusion. Aorta Normal size aortic root and proximal ascending aorta. CONCLUSIONS Left ventricular ejection fraction is estimated at 40-45 %. Apical, anterio-apical, apical-septal wall hypokinesia. No significant valve dysfunction No pericardial effusion. Previewed by: Dr Jay Tolentino (Electronically Signed) Final Date: 08 February 2024 20:19
[2024-02-09 08:03] LABS: Blood Urea Nitrogen 12.6 mg/dL (9.0-27.0); Calcium 9.1 mg/dL (8.7-10.3); Carbon Dioxide 19.4 mmol/L (21.6-31.8); Chloride 104 mmol/L (96-109); Glucose 115 mg/dL (70-110); Sodium 138 mmol/L (135-145)
[2024-02-09] MEDS ORDERED: amLODIPine 10 MG TAB PO SCH (09:00)
== END 2024-02-08 16:54 | disposition home or self-care (01) | DRG 322 ==
LOC: EC 11:04 → 3SCARD 12:38 → 2SICU 13:58
PROVIDERS: ADMIT Internal Medicine; ATTEND Internal Medicine
PROC: 027034Z Dilation of Coronary Artery, One Artery with Drug-eluting Intraluminal Device, Percutaneous Approach (ICD-10-PCS; principal; 2024-02-07 14:00)
PROC: B240ZZ3 Ultrasonography of Single Coronary Artery, Intravascular (ICD-10-PCS; principal; 2024-02-07 14:00)
PROC: 4A023N7 Measurement of Cardiac Sampling and Pressure, Left Heart, Percutaneous Approach (ICD-10-PCS; principal; 2024-02-07 14:00)
PROC: 02C03ZZ Extirpation of Matter from Coronary Artery, One Artery, Percutaneous Approach (ICD-10-PCS; principal; 2024-02-07 14:00)
PROC: B2111ZZ Fluoroscopy of Multiple Coronary Arteries using Low Osmolar Contrast (ICD-10-PCS; principal; 2024-02-07 14:00)
DX: I21.09 ST elevation (STEMI) myocardial infarction involving other coronary artery of anterior wall (principal); E11.9 Type 2 diabetes mellitus without complications; E66.9 Obesity, unspecified; Z68.31 Body mass index [BMI] 31.0-31.9, adult; I10 Essential (primary) hypertension; I25.110 Atherosclerotic heart disease of native coronary artery with unstable angina pectoris; I44.30 Unspecified atrioventricular block; E78.00 Pure hypercholesterolemia, unspecified; J30.2 Other seasonal allergic rhinitis; K21.9 Gastro-esophageal reflux disease without esophagitis; N40.1 Benign prostatic hyperplasia with lower urinary tract symptoms; R33.8 Other retention of urine; M10.9 Gout, unspecified; Z79.84 Long term (current) use of oral hypoglycemic drugs; Z79.1 Long term (current) use of non-steroidal anti-inflammatories (NSAID); Z79.899 Other long term (current) drug therapy; Z71.3 Dietary counseling and surveillance; Z85.71 Personal history of Hodgkin lymphoma; Z87.442 Personal history of urinary calculi; Z92.21 Personal history of antineoplastic chemotherapy; Z88.8 Allergy status to other drugs, medicaments and biological substances
CPT/HCPCS: 36415; 71045; 71275; 80048; 80053; 80061; 82150; 83690; 83735; 84484; 85025; 85379; 85610; 85730; 92973; 92978; 93005; 93306; 93458; 96365; 99291